=== PATIENT | male | born 1995 | race Caucasian/White ===

== ENCOUNTER 2021-03-23 05:57 | Emergency (ER) | payer SELFPAY ==
[~2021-03-23] VITALS: Ht 167.7 cm; Wt 79.9 kg
[2021-03-23] MEDS ORDERED: ONDANSETRON 4 MG (ZOFRAN) ORAL DISSOLVE TAB PO STA (06:29)
[2021-03-23] MEDS ORDERED: hydrOXYzine (VISTARIL/ATARAX) 25 MG capsule/tablet PO ONE (06:30)
--- NOTE | 2021-03-23 06:38 | ED Psychosocial ---
General Chief Complaint: Psych/Social Disorder Stated Complaint: PANIC ATTACKS/VOMITING Source: patient Exam Limitations: no limitations History of Present Illness Date Seen by Provider: Mar 23, 2021 Time Seen by Provider: 06:10 Initial Comments Patient is a 25-year-old male who presents to the emergency room with a chief complaint of anxiety and insomnia. Patient relates that for the last 6 months he has been under increased stress related to his leaving him, taking his 3 kids and moving to [facility]. Patient states that she refuses to let him see or speak to his children. He is not sleeping because of the anxiety over this. He states that he has no suicidal or homicidal thoughts. He denies aud itory hallucinations but states that when he does not sleep for days he occasionally sees things. He relates that he has a history of bipolar and schizophrenia and has been prescribed Valium and Xanax for these issues in the past. He states he has to buy Xanax off the street and most of the time its "fake". He does state that he has been seen by [facility] at one point a few months ago right after he moved here but they did not help him. He has not had any follow-up. He denies recent illness but states that he does wake up at night with panic attacks vomiting. Patient declines screening by mental health, he declines inpatient treatment. All other review of systems reviewed and negative except as stated Timing/Duration: constant Severity: severe Associated Symptoms: anxiety, impaired concentration, insomnia Allergies and Home Medications Allergies Coded Allergies: No Known Drug Allergies (Unverified , 03/23/21) Patient Home Medication List Home Medication List Reviewed: Yes Review of Systems Constitutional: see HPI EENTM: no symptoms reported Respiratory: no symptoms reported Cardiovascular: no symptoms reported Gastrointestinal: nausea, vomiting Genitourinary: no symptoms reported Musculoskeletal: no symptoms reported Skin: no symptoms reported Psychiatric/Neurological: Anxiety, Depressed, Emotional Problems, Other (Insomnia) All Other Systems Reviewed Negative Unless Noted: Yes Physical Exam Capillary Refill : Height, Weight, BMI Height: '" Weight: lbs. oz. kg; BMI Method: General Appearance: WD/WN, mild distress HEENT: PERRL/EOMI Neck: normal inspection Respiratory: lungs clear, normal breath sounds, no respiratory distress, no accessory muscle use Cardiovascular: regular rate, rhythm Extremities: normal range of motion, normal inspection Neurologic/Psychiatric: no motor/sensory deficits, alert, other (anxious, upset. poor eye contact; dissheveled; ) Appearance/Memory: no memory impairment, denies illness, disheveled Behavior/Eye Contact: cooperative, normal speech, avoids eye contact Thoughts/Hallucinations: normal thought pattern, no apparent hallucination Skin: normal color, warm/dry Progress/Results/Core Measures Results/Orders My Orders Orders - KALLIE FRANCO MD Hydroxyzine Cap/Tab (Vistaril) (03/23/21 06:30) Ondansetron Oral Dissolve Tab (Zofran (03/23/21 06:29) Progress Progress Note : Time: 06:48 Progress Note Patient seems very anxious and emotional. He denies suicidal or homicidal ideation, he denies auditory hallucinations. He declines assessment for inpatient treatment. He has previously been to [facility], I have directed him there for further evaluation and treatment of his anxiety. Patient states that he has a history of bipolar disorder and schizophrenia but it does not sound like he has been on any medications to actually treat this other than what he tells me were Valium and Xanax. I have recommended Vistaril and Zofran. He currently does not meet any criteria for acute inpatient treatment and again would declined this so it seems. His vital signs are stable. He has no other ongoing medical complaints. He is given Vistaril and Zofran here in the department. Patient is stable for discharge. Departure Impression Primary Impression: Anxiety Disposition: 01 HOME, SELF-CARE Condition: Stable Departure-Patient Inst. Decision time for Depature: 06:35 Referrals: NO,LOCAL PHYSICIAN (PCP/Family) Primary Care Physician Patient Instructions: Anxiety, Adult (DC) Add. Discharge Instructions: I have written you a prescription for Vistaril. This medication is used for anxiety attacks. You can take 1 to 2 pills every 6 hours as needed for anxiety. This medication may make you sleepy. Do not drive and take it. I have also written you a medication for nausea. Take this every 8 hours as needed for upset stomach. You need to reach out to [facility] services. They have mental health providers that can assist you with counseling/therapy, medication for ongoing anxiety/panic disorder, your bipolar and schizophrenia symptoms. [facility] [phone] [address] [place] [address] Return to the emergency department if you have any thoughts of harming yourself or others, if you start hearing voices or have any other emergent concerning symptoms. Scripts Ondansetron (Ondansetron Odt) 8 Mg Tab.rapdis 8 MG PO Q8H PRN for nausea, #15 TAB Prov: KALLIE FRANCO MD 03/23/21 Hydroxyzine Pamoate (Vistaril) 25 Mg Capsule 25 MG PO Q6H PRN for anxiety, #30 CAP 1-2 pills every 6 hours as needed for anxiety Prov: KALLIE FRANCO MD 03/23/21 KALLIE FRANCO MD Mar 23, 2021 06:38
[2021-03-23] MEDS ORDERED: ONDA8TAB13 PO (06:48)
[2021-03-23] MEDS ORDERED: HYDR25CA PO (06:48)
[2021-03-23 07:00] VITALS: BP 132/72
== END 2021-03-23 06:59 | disposition home or self-care (01) ==
LOC: EDUNIT# 05:57 → ER 06:04
DX: F41.9 Anxiety disorder, unspecified (principal)
CPT/HCPCS: 99283

== ENCOUNTER 2022-11-05 09:40 | Emergency (ER) | payer SELFPAY ==
[~2022-11-05] VITALS: Ht 170 cm; Wt 78.0 kg
[~2022-11-05 09:40] MED LIST: HYDR25CA PO; ONDA8TAB13 PO
[2022-11-05] MEDS ORDERED: morphine INJ 10 MG/ML 1ML (SYR OR VIAL) IVP STA (09:49)
[2022-11-05 09:54] LABS: BASOPHILS % (AUTO) 0 % (0-10); EOSINOPHILS # (AUTO) 0.1 10^3/uL (0.0-0.3); EOSINOPHILS % (AUTO) 0 % (0-10); HEMATOCRIT 44 % (40-54); HEMOGLOBIN 15.1 g/dL (13.3-17.7); LYMPHOCYTES # (AUTO) 1.6 10^3/uL (1.0-4.0); LYMPHOCYTES % (AUTO) 10 % (12-44); MEAN CORPUSCULAR HEMOGLOBIN 30 pg (25-34); MEAN CORPUSCULAR HGB CONC 34 g/dL (32-36); MEAN CORPUSCULAR VOLUME 86 fL (80-99); MEAN PLATELET VOLUME 9.1 fL (9.0-12.2); MONOCYTES # (AUTO) 0.7 10^3/uL (0.0-1.0); MONOCYTES % (AUTO) 5 % (0-12); NEUTROPHILS # (AUTO) 12.8 10^3/uL (1.8-7.8); NEUTROPHILS % (AUTO) 84 % (42-75); PLATELET COUNT 344 10^3/uL (130-400); WHITE BLOOD COUNT 15.2 10^3/uL (4.3-11.0)
[2022-11-05] MEDS ORDERED: ONDANSETRON 4 MG/2 ML (SDV) Z0FRAN IVP ONE (10:00)
--- NOTE | 2022-11-05 10:00 | ED Abdominal Pain ---
General Chief Complaint: Abdominal/GI Problems Stated Complaint: ABD PAIN | POSSIBLE BURST APPENDIX Nursing Triage Note: PT TO RM 6 PT CO OF SEVERE ABD PAIN 10/10 PAIN DOES GOES DOWN INTO R SIDE OF SCROTUM, PT STATES HURTS WHEN URINATES. PT WAS SENT BY [facility] W C/O OF APPHumaira. N/V X 2 DAYS Source of Information: Patient Exam Limitations: No Limitations History of Present Illness Date Seen by Provider: Nov 05, 2022 Time Seen by Provider: 09:40 Initial Comments 27-year-old male presents from the [facility] clinic for abdominal pain. Symptoms started a couple days ago just below his umbilicus and eval diffuse in his bilateral lower abdomen. He states he has had pain like this in the past but never this severe. He has had nausea with vomiting as well. He has had some constipation recently, stating he has had to "push harder to have a bowel movement." He also states he had some burning with urination this morning. The pain does radiate down into his right testicle as well. All other systems reviewed and negative except documented per HPI. Voice recognition software was used to help create this chart Allergies and Home Medications Allergies Coded Allergies: No Known Drug Allergies (Unverified , 03/23/21) Patient Home Medication List Home Medication List Reviewed: Yes Hydroxyzine Pamoate (Vistaril) 25 Mg Capsule, 25 MG PO Q6H PRN for anxiety Prescribed by: KALLIE FRANCO on 03/23/21 0648 Ondansetron (Ondansetron Odt) 8 Mg Tab.rapdis, 8 MG PO Q8H PRN for nausea Prescribed by: KALLIE FRANCO on 03/23/2148 Review of Systems Review of Systems Constitutional: see HPI Past [id number] Hx Patient Social History Tobacco Use?: No Use of E-Cig and/or Vaping dev: Yes E-Cig or Vaping type used: Nicotine Substance use?: Yes Substance type: Marijuana Substance frequency: Couple times a week Alcohol Use?: No Pt feels they are or have been: No Physical Exam Vital Signs Vital Signs - First Documented 11/05/22 09:40 Temp 36.8 Pulse 94 Resp 18 B/P (MAP) 125/91 (102) Pulse Ox 100 Capillary Refill : Less Than 3 Seconds Height/Weight/BMI Height: '" Weight: lbs. oz. kg; 26.00 BMI Method: General Appearance: severe distress (Patient is writhing on the bed, hyperventilating and clenching his fists) HEENT: normal ENT inspection, pharynx normal Neck: non-tender, full range of motion, supple, normal inspection Respiratory: chest non-tender, lungs clear, normal breath sounds, no respiratory distress, no accessory muscle use Cardiovascular: regular rate, rhythm, no murmur Gastrointestinal: normal bowel sounds, soft, tenderness (Diffuse abdominal tenderness with even light palpation. No rebound tenderness. There is voluntary guarding diffusely.) Genital/Rectal: other (Tenderness palpation right testicle. There is no swelling. Normal cremasteric reflex.) Extremities: normal capillary refill Neurologic/Psychiatric: alert Skin: normal color, warm/dry Progress/Results/Core Measures Results/Orders Lab Results Laboratory Tests Test 11/05/22 09:45 11/05/22 10:52 Range/Units White Blood Count 15.2 H 4.3-11.0 10^3/uL Red Blood Count 5.12 4.30-5.52 10^6/uL Hemoglobin 15.1 13.3-17.7 g/dL Hematocrit 44 40-54 % Mean Corpuscular Volume 86 80-99 fL Mean Corpuscular Hemoglobin 30 25-34 pg Mean Corpuscular Hemoglobin Concent 34 32-36 g/dL Red Cell Distribution Width 12.5 10.0-14.5 % Platelet Count 344 130-400 10^3/uL Mean Platelet Volume 9.1 9.0-12.2 fL Immature Granulocyte % (Auto) 1 % Neutrophils (%) (Auto) 84 H 42-75 % Lymphocytes (%) (Auto) 10 L 12-44 % Monocytes (%) (Auto) 5 0-12 % Eosinophils (%) (Auto) 0 0-10 % Basophils (%) (Auto) 0 0-10 % Neutrophils # (Auto) 12.8 H 1.8-7.8 10^3/uL Lymphocytes # (Auto) 1.6 1.0-4.0 10^3/uL Monocytes # (Auto) 0.7 0.0-1.0 10^3/uL Eosinophils # (Auto) 0.1 0.0-0.3 10^3/uL Basophils # (Auto) 0.0 0.0-0.1 10^3/uL Immature Granulocyte # (Auto) 0.1 0.0-0.1 10^3/uL Neutrophils % (Manual) 86 % Lymphocytes % (Manual) 10 % Monocytes % (Manual) 4 % Blood Morphology Comment NORMAL Sodium Level 140 135-145 MMOL/L Potassium Level 3.7 3.6-5.0 MMOL/L Chloride Level 106 98-107 MMOL/L Carbon Dioxide Level 22 21-32 MMOL/L Anion Gap 12 5-14 MMOL/L Blood Urea Nitrogen 17 7-18 MG/DL Creatinine 0.97 0.60-1.30 MG/DL Estimat Glomerular Filtration Rate 110 BUN/Creatinine Ratio 18 Glucose Level 129 H 70-105 MG/DL Calcium Level 9.8 8.5-10.1 MG/DL Corrected Calcium 8.5-10.1 MG/DL Total Bilirubin 0.4 0.1-1.0 MG/DL Aspartate Amino Transf (AST/SGOT) 31 5-34 U/L Alanine Aminotransferase (ALT/SGPT) 51 0-55 U/L Alkaline Phosphatase 66 40-136 U/L Total Protein 7.9 6.4-8.2 GM/DL Albumin 4.7 H 3.2-4.5 GM/DL Lipase 30 8-78 U/L Urine Color YELLOW Urine Clarity CLEAR Urine pH 8.5 5-9 Urine Specific [place] 1.010 L 1.016-1.022 Urine Protein TRACE H NEGATIVE Urine Glucose (UA) NEGATIVE NEGATIVE Urine Ketones NEGATIVE NEGATIVE Urine Nitrite NEGATIVE NEGATIVE Urine Bilirubin NEGATIVE NEGATIVE Urine Urobilinogen 0.2 < = 1.0 MG/DL Urine Leukocyte Esterase NEGATIVE NEGATIVE Urine RBC (Auto) NEGATIVE NEGATIVE Urine RBC NONE /HPF Urine WBC 0-2 /HPF Urine Squamous Epithelial Cells 2-5 /HPF Urine Crystals NONE /LPF Urine Bacteria TRACE /HPF Urine Casts NONE /LPF Urine Mucus NEGATIVE /LPF Urine Culture Indicated NO My Orders Orders - CONCEPCIÓN TORRES DO Comprehensive Metabolic Panel (11/05/22 09:48) Lipase (11/05/22 09:48) Ua Culture If Indicated (11/05/22 09:48) Ct Abdomen/Pelvis W (11/05/22 09:48) Cbc With Automated Diff (11/05/22 09:48) Us Scrotum (Testicle) [id number] (11/05/22 09:48) Morphine Injection (Morphine Injection (11/05/22 09:49) Ondansetron Injection (Zofran Injectio (11/05/22 10:00) Manual Differential (11/05/22 09:45) Iohexol Injection (Omnipaque 350 Mg/Ml 1 (11/05/22 10:30) Received Contrast (Hold Metformin- Contr (11/05/22 10:30) Ns (Ivpb) (Sodium Chloride 0.9% Ivpb Bag (11/05/22 10:30) Medications Given in ED Current Medications Medications Dose Ordered Sig/Joaquin Route Start Time Stop Time Status Last Admin Dose Admin Iohexol 100 ml ONCE ONCE IV 11/05/22 10:30 11/05/22 10:31 DC 11/05/22 10:43 80 ML Ondansetron HCl 8 mg ONCE ONCE IVP 11/05/22 10:00 11/05/22 10:01 DC 11/05/22 10:00 8 MG Sodium Chloride 100 ml ONCE ONCE IV 11/05/22 10:30 11/05/22 10:31 DC 11/05/22 10:43 80 ML Vital Signs/I&O 11/05/22 09:40 Temp 36.8 Pulse 94 Resp 18 B/P (MAP) 125/91 (102) Pulse Ox 100 Blood Pressure Mean: 102 Departure Communication (Admissions) In speaking with the patient and his further he has had these episodes of abdominal pain off and on since he was a child. He states this is the first time he has been evaluated for them as he usually just puts an ice pack on his stomach and they subside spontaneously. Symptoms in the past have not been as severe as they have been today. CT scan is completely negative on my independent review as well as radiology read. Ultrasound of the scrotum is negative for torsion, other acute testicular pathology. I independently reviewed these images as well. His labs are unremarkable and his urinalysis is negative. No evidence of acute appendicitis, cholecystitis, cholelithiasis, bowel obstruction, testicular torsion or other pathology. No diverticulitis. Discharged in stable condition Impression Primary Impression: Abdominal pain Qualified Codes: R10.84 - Generalized abdominal pain Disposition: HOME, SELF-CARE Condition: Stable Departure-Patient Inst. Referrals: NO,LOCAL PHYSICIAN (PCP/Family) Primary Care Physician Patient Instructions: Abdominal Pain, Adult ED CONCEPCIÓN TORRES DO Nov 05, 2022 10:00
[2022-11-05 10:07] LABS: ALBUMIN 4.7 GM/DL (3.2-4.5); CHLORIDE 106 MMOL/L (98-107); POTASSIUM 3.7 MMOL/L (3.6-5.0); SODIUM 140 MMOL/L (135-145)
[2022-11-05 10:08] LABS: CALCIUM 9.8 MG/DL (8.5-10.1)
[2022-11-05 10:09] LABS: GLUCOSE 129 MG/DL (70-105)
[2022-11-05 10:10] LABS: TOTAL PROTEIN 7.9 GM/DL (6.4-8.2)
[2022-11-05 10:11] LABS: BILIRUBIN,TOTAL 0.4 MG/DL (0.1-1.0); CARBON DIOXIDE 22 MMOL/L (21-32)
[2022-11-05 10:13] LABS: ALKALINE PHOSPHATASE 66 U/L (40-136); CREATININE SERUM 0.97 MG/DL (0.60-1.30); GFR ESTIMATED 110
[2022-11-05 10:14] LABS: BUN/CREATININE RATIO 18
[2022-11-05 10:16] LABS: ALANINE AMINOTRANSFERASE 51 U/L (0-55); LIPASE 30 U/L (8-78)
[2022-11-05 10:22] LABS: LYMPHOCYTES % (MANUAL) 10 %; MONOCYTES % (MANUAL) 4 %; NEUTROPHILS % (MANUAL) 86 %; RBC MORPH NORMAL
[2022-11-05] MEDS ORDERED: IOHEXOL 350 MG/ML 100 ML (OMNIPAQUE 350) VIAL IV ONE (10:30)
[2022-11-05] MEDS ORDERED: NS 100 ML (IVPB) BAG IV ONE (10:30)
[2022-11-05] MEDS ORDERED: HOLD METFORMIN - RECEIVED CONTRAST 20 ML VIAL IV SCH (10:30)
--- NOTE | 2022-11-05 10:51 | Diagnostic Imaging Report ---
PROCEDURE: US Scrotum. TECHNIQUE: Multiple Real-time grayscale images were obtained over the scrotum in various projections bilaterally. INDICATION: Right scrotal pain. FINDINGS: The testicles are symmetric and homogeneous bilaterally with normal internal blood flow. No testicular mass is identified. There is no evidence of hydrocele or extra-scrotal lesion. No hernia was documented. IMPRESSION: Unremarkable scrotal ultrasound. Dictated by: Dictated on workstation # [id number]
[2022-11-05 10:59] LABS: BILIRUBIN,URINE NEGATIVE (NEGATIVE); CLARITY,URINE CLEAR; COLOR,URINE YELLOW; GLUCOSE, URINE (UA) NEGATIVE (NEGATIVE); KETONES,URINE NEGATIVE (NEGATIVE); LEUKOCYTE ESTERASE ,URINE NEGATIVE (NEGATIVE); NITRITE,URINE NEGATIVE (NEGATIVE); PH,URINE 8.5 (5-9); PROTEIN,URINE TRACE (NEGATIVE)
--- NOTE | 2022-11-05 11:00 | Diagnostic Imaging Report ---
PROCEDURE: CT abdomen and pelvis with contrast. TECHNIQUE: Multiple contiguous axial images were obtained through the abdomen and pelvis after administration of intravenous contrast. Auto Exposure Controls were utilized during the CT exam to meet ALARA standards for radiation dose reduction. All CT scans use one or more of the following dose optimizing techniques: automated exposure control, MA and/or KvP adjustment based on patient size and exam type or iterative reconstruction. INDICATION: Severe abdominal pain extending into the right scrotum. No prior studies are available for comparison. FINDINGS: The lung bases are clear. Liver demonstrates generalized low attenuation consistent with hepatic steatosis. No liver mass is identified. Gallbladder is unremarkable. There is no biliary ductal dilatation. The pancreas and spleen are unremarkable. No adrenal mass is detected. Kidneys are without calculi or hydronephrosis. No ureteral or bladder calculi are identified. The appendix is visualized the right lower quadrant and appears unremarkable. The small and large bowel loops are normal caliber. There is no obstruction. There is no ascites. No inflammatory changes are seen. Prostate is unremarkable. IMPRESSION: 1. Hepatic steatosis. 2. No CT evidence of urinary tract calculi, obstruction or evidence of acute appendicitis. Dictated by: Dictated on workstation # [id number]
[2022-11-05 11:17] LABS: WBC,URINE 0-2 /HPF
[2022-11-05 11:18] LABS: BACTERIA,URINE TRACE /HPF
[2022-11-05 11:32] VITALS: BP 123/79
== END 2022-11-05 11:34 | disposition home or self-care (01) ==
LOC: EDUNIT# 09:40 → ER 09:42
DX: R10.31 Right lower quadrant pain (principal); R10.32 Left lower quadrant pain; F17.290 Nicotine dependence, other tobacco product, uncomplicated; Z28.310 Unvaccinated for COVID-19
CPT/HCPCS: 36415; 74177; 76870; 80053; 81000; 83690; 85007; 85027